=== PATIENT | male | born 1945 | race Caucasian/White ===

== ENCOUNTER 2017-04-26 11:28 | Emergency (ER) | payer MEDICARE ==
--- NOTE | 2017-04-26 12:36 | RAD ---
HISTORY: Posterior calf pain COMPARISONS: None relevant TECHNIQUE: Multiple transverse and longitudinal ultrasound images were obtained of the right lower extremity from the level of the common femoral vein inferiorly through to the infrapopliteal veins using grayscale, color Doppler, and spectral Doppler imaging with and without compression and with augmentation. Comparison images were obtained of the contralateral common femoral vein. Directed images were obtained of the area of pain. FINDINGS: VEINS: The venous system of the right lower extremity is compressible throughout its course, with normal flow on color Doppler imaging and normal response to augmentation on spectral Doppler imaging. SOFT TISSUES: Unremarkable. OTHER FINDINGS: There is no sonographic abnormality in the area of calf pain. IMPRESSION: NO RIGHT LOWER EXTREMITY DEEP VEIN THROMBOSIS. NO SONOGRAPHIC ABNORMALITY IN THE AREA OF CALF PAIN.
[2017-04-26 13:20] VITALS: BP 158/102
--- NOTE | 2017-04-26 13:34 | ED ---
Lower Extremity - HPI Summary HPI Summary: Patient is a 71-year-old male with a chief complaint of right calf pain which was sudden in nature upon standing. He states the calf feels as though it is pulsating. He is ambulating, but with pain. He is able to plantar flex and dorsiflex, but again with pain. Pain is a 8 out of 10, constant and throbbing. Symptoms are aggravated with standing, alleviated with rest. He has not taken anything for the pain. There is no erythema or warmth or size difference comparatively to the calfs. Denies any recent travel. He does not take blood thinners. - History of Current Complaint Chief Complaint: EDExtremityLower Stated Complaint: RT LEG PAIN Time Seen by Provider: 04/26/17 11:46 Hx Obtained From: Patient Onset of Pain: Immediate Onset/Duration: Hours Severity Initially: Moderate Severity Currently: Moderate Pain Intensity: 1 Pain Scale Used: 0-10 Numeric Timing: Constant Location: Is Discrete @ - Right calf pain Character Of Pain: Aching, Throbbing Associated Signs And Symptoms: Negative: Swelling, Redness, Bruising Alleviating Factor(s): Rest Able to Bear Weight: No - Risk Factors Gout Risk Factors: Negative DVT Risk Factors: Negative Septic Arthritis Risk Factor: Extremes of Age PMH/Surg Hx/FS Hx/Imm Hx Previously Healthy: Yes - Immunization History Hx Pertussis Vaccination: No Immunizations Up to Date: Unable to Obtain/Confirm Infectious Disease History: No Infectious Disease History: Denies: Traveled Outside the in Last 30 Days - Social History Occupation: Unemployed Lives: With Family Alcohol Use: None Hx Substance Use: No Substance Use Type: Reports: None Hx Tobacco Use: No Smoking Status (MU): Never Smoked Tobacco Review of Systems Constitutional: Negative Negative: Fever, Chills, Fatigue, Skin Diaphoresis Eyes: Negative Cardiovascular: Negative Gastrointestinal: Negative Genitourinary: Negative Positive: no symptoms reported, see HPI Positive: Arthralgia, Myalgia Skin: Negative All Other Systems Reviewed And Are Negative: Yes Physical Exam Triage Information Reviewed: Yes Vital Signs On Initial Exam: Initial Vitals Temp Pulse Resp BP Pulse Ox 98.1 F 77 18 155/105 98 04/26/17 11:30 04/26/17 11:30 04/26/17 11:30 04/26/17 11:30 03/09/18 11:30 Vital Signs Reviewed: Yes Appearance: Positive: Well-Appearing, Well-Nourished Skin: Positive: Warm, Skin Color Reflects Adequate Perfusion, Other - No erythema or warmth to the calf Head/Face: Positive: Normal Head/Face Inspection Eyes: Positive: EOMI, GLENNY, Conjunctiva Clear Neck: Positive: Supple, No Lymphadenopathy Respiratory/Lung Sounds: Positive: Clear to Auscultation, Breath Sounds Present Cardiovascular: Positive: RRR, Pulses are Symmetrical in both Upper and Lower Extremities Musculoskeletal: Positive: Strength/ROM Intact, Pain @ - Right calf pain. Negative: Laurie Sign Left, Laurie Sign Right, Edema Left, Edema Right Neurological: Positive: Normal, Sensory/Motor Intact, Alert, Oriented to Person Place, Time, Speech Normal Psychiatric: Positive: Normal AVPU Assessment: Alert Diagnostics - Vital Signs Vital Signs Temp Pulse Resp BP Pulse Ox 04/26/17 13:18 98.3 F 76 18 158/102 97 04/26/17 11:30 98.1 F 77 18 155/105 98 - Laboratory Lab Statement: Any lab studies that have been ordered have been reviewed, and results considered in the medical decision making process. Lower Extremity Course/Dx - Course Course Of Treatment: During the course of treatment, the patient is evaluated for right calf pain. Ultrasound order which shows no evidence of DVT. Likely muscle strain. I have advised moist heat to the area and have given Flexeril for his symptoms of muscle spasms. He will follow-up with orthopedics if symptoms become worse. He will take ibuprofen 6 her milligrams 3 times daily for inflammation. - Diagnoses Differential Diagnosis/HQI/PQRI: Positive: DVT, Sprain, Strain Provider Diagnoses: Muscle strain Discharge - Discharge Plan Condition: Stable Disposition: HOME Prescriptions: Cyclobenzaprine TAB* [Flexeril TAB*] 10 mg PO BID PRN #16 tab MDD 2 PRN Reason: Spasms Patient Education Materials: Muscle Strain (ED) Referrals: No Primary Care Phys,NOPCP [Primary Care Provider] - Maria Esther Baker MD [Medical Doctor] - Additional Instructions: Moist heat to the area Flexeril twice daily as needed for muscle spasms Please follow-up with orthopedic physician if symptoms continue Ibuprofen 600 mg 3 times daily Rest the area
== END 2017-04-26 13:18 | disposition home or self-care (01) ==
LOC: ED 11:28
DX: S86.811A Strain of other muscle(s) and tendon(s) at lower leg level, right leg, initial encounter (principal)
CPT/HCPCS: 99281

== ENCOUNTER 2019-01-24 10:03 | Emergency (ER) | payer MEDICARE ==
--- OUTSIDE RECORDS SUMMARY | 2019-01-24 10:23 | XMS REPORT | Summary of Care ---
:1945 Author Organization [facility] Address [address] [facility] [place] [address] Care Team Providers Name Role Phone Madeleine Thomas MD Primary Care Provider Reason for Visit Reason Comments Dysuria Encounter Details Date Type Department Care Team Description 01/21/2019 Office Visit [facility] Madeleine Lr, Dysuria (Primary Dx); [facility] [employer] Urethritis [place] [id number] [address] [facility] [phone] [place] [address] Allergies No Known Allergiesdocumented as of this encounter (statuses as of 01/21/2019) Medications Medication Sig Dispensed Refills Start Date End Date Status metroNIDAZOLE 1 Appl by Apply 1 Tube 11 12/04/2018 Active (METROGEL) 1 % Apply externally route externally TWICE DAILY. GelIndications: Rosacea amoxicillin (AMOXIL, Take 1 Tab by 14 Tab 0 01/21/2019 01/28/2019 Active POLYMOX, TRIMOX) 875 mouth TWICE DAILY MG Oral Tab for 7 days. documented as of this encounter (statuses as of 01/21/2019) Active Problems Problem Noted Date Dupuytren's contracture 10/04/2014 Skin cancer, basal cell 05/21/2013 Overview: Excision left shoulder 2010 Pure hypercholesterolemia 08/15/2012 Overview: Lifestyle changes instituted 2008. Lumbosacral spondylosis without myelopathy 02/14/2007 documented as of this encounter (statuses as of 01/21/2019) Resolved Problems Problem Noted Date Resolved Date Keratosis 11/24/2013 08/22/2017 Basal cell carcinoma of shoulder 12/25/2010 08/15/2012 Unspecified constipation 11/15/2010 09/10/2011 Osteoarthrosis, unspecified whether generalized or 02/14/2007 08/15/2012 localized, pelvic region and thigh Disorders of sacrum 02/14/2007 08/15/2012 documented as of this encounter (statuses as of 01/21/2019) Immunizations Name Administration Dates Next Due Depo Medrol (80mg) 02/22/2015 Influenza Vaccine 65 Yrs + 12/04/2018 Pneumococcal Conjugate(13 Valent) 12/04/2018 TDAP Vaccine 08/27/2012 Td 01/25/2005 Xiaflex (0.9mg) 01/17/2015 documented as of this encounter Social History Tobacco Use Types Packs/Day Years Used Date Former Smoker Smokeless Tobacco: Never Used Alcohol Use Drinks/Week oz/Week Comments Yes rare Sex Assigned at Date Recorded Not on file Job Start Date Occupation Industry Not on file Not on file Not on file Travel History Travel Start Travel End No recent travel history available. documented as of this encounter Last Filed Vital Signs Vital Sign Reading Time Taken Comments Blood Pressure 130/78 01/21/2019 8:17 AM EST Pulse 69 01/21/2019 8:17 AM EST Temperature 36.4 01/21/2019 8:17 AM EST C (97.6 F) Respiratory Rate 16 01/21/2019 8:17 AM EST Oxygen Saturation 98% 01/21/2019 8:17 AM EST Inhaled Oxygen Concentration - - Weight - - Height - - Body Mass Index - - documented in this encounter Patient Instructions Patient InstructionsMadeleine Cervantes FNP-C - 01/21/2019 8:10 AM ESTAmoxil 875mg twice daily x 7 days. Avoid coffee/caffeines. Clear fluids Report to ER if having increase or ongoing pain, bladder distention/unable to pee, etc Labs/cultures ordered/taken today: Urine culture: Final result will be available in 2-3 days. If we need to change your antibiotic, we will notify you, or if you are having ongoing issues in 2-3 days, you may call the walk in office at [phone] for final results documented in this encounter Progress Notes Madeleine Cervantes FNP-C - 01/21/2019 8:10 AM EST PATIENT: Dax Anglin : 1945 DATE OF SERVICE: 01/21/2019 Chief Complaint Patient presents with Dysuria HPI: Dax Anglin is 73-y.o. and comes to walk in care office with complaint of: Urinary issues. Symptoms started 5 days Symptoms include: Pain at tip of penis/urethra. Denies abdominal pain, pressure, back pain Had elevated PSA in past, but has been going down. Follows with Dr. Thomas and appt with her in February Denies: Abdominal pain, n/v/d, fever, back pain Denies any concerns for STI's: States "haven't had sex since 1973". Denies any penile discharge, ulcers Denies any urinary retention Was seen at another walk in office yesterday. Culture is pending Past Medical History: Diagnosis Date Arthritis Basal cell carcinoma of shoulder 12/25/2010 Wrist fracture Past Surgical History: Procedure Laterality Date COLONOSCOPY 2004 next 2014 Outpatient Medications Marked as Taking for the 01/21/19 encounter (Office Visit ) with Madeleine Cervantes FNP-C Medication Sig Dispense Refill amoxicillin (AMOXIL, POLYMOX, TRIMOX) 875 MG Oral Tab Take 1 Tab by mouth TWICE DAILY for 7 days. 14 Tab 0 No Known Allergies ROS: Reviewed in HPI and pertinent positives noted above, remaining are negative if not otherwise stated. PHYSICAL EXAM: OBJECTIVE: BP 130/78 Pulse 69 Temp 97.6 F (36.4 C) (Tympanic) Resp 16 SpO2 98% GENERAL: Alert, In no acute distress HEAD: Atraumatic CHEST/LUNGS: Resps easy and unlabored. Clear to auscultation bilaterally. No wheezes, rales, rhonchi. HEART: Regular rate and rhythm. No abnormal heart sounds appreciated ABDOMEN: Soft, without pain BS x 4 normoactive. No guarding, rebound tenderness, or rigidity. No CVA tenderness PENILE: deferred INTEGUMENTARY: Skin pink, warm Results for orders placed or performed in visit on 01/21/19 URINE DIP CLINITEK (AMB POCT) Result Value Ref Range URINE GLUCOSE (POCT) Negative Negative mg/dl URINE BILIRUBIN (POCT) Negative Negative Urine Ketones (POCT) Negative Negative URINE SPECIFIC GRAVITY (POCT) 1.020 1.005 - 1.030 URINE BLOOD (POCT) Negative Negative URINE PH (POCT) 7.0 5.0 - 8.0 URINE PROTEIN (POCT) Negative Negative mg/dl URINE UROBILINOGEN (POCT) 0.2 0.2 - 1.0 mg/dl URINE NITRITES (POCT) Negative Negative URINE LEUKOCYTES (POCT) Negative Negative Cells/uL ASSESSMENT: ICD-9-CM ICD-10-CM 1. Dysuria 788.1 R30.0 URINE DIP CLINITEK (AMB POCT) URINE CULTURE (C&S) 2. Urethritis 597.80 N34.2 PLAN: Advised pt that we can try some amoxil and wait for culture. Advised to avoid caffeine for now Will follow up with his pcp Patient Instructions Amoxil 875mg twice daily x 7 days. Avoid coffee/caffeines. Clear fluids Report to ER if having increase or ongoing pain, bladder distention/unable to pee, etc Labs/cultures ordered/taken today: Urine culture: Final result will be available in 2-3 days. If we need to change your antibiotic, we will notify you, or if you are having ongoing issues in 2-3 days, you may call the walk in office at [phone] for final results FOLWER Ngo 01/21/2019 08:51 documented in this encounter Plan of Treatment Date Type Specialty Care Team Description 02/25/2019 Office Visit Internal Medicine Madeleine Thomas MD [address] [place] [id number] [phone] Name Type Priority Associated Diagnoses Order Schedule URINE CULTURE (C&S) Lab Routine Dysuria 1 Occurrences starting 01/21/2019 until 07/20/2019 Health Maintenance Due Date Last Done Comments ZOSTER IMMUNIZATION SERIES 05/23/2019 Postponed from (1 of 2) 07/13/1993 (Vaccine not available) Colonoscopy 11/25/2019 11/24/2009, 11/24/2009, 02/14/2005 DEPRESSION SCREENING 12/05/2019 12/04/2018 FALL RISK ASSESSMENT 12/05/2019 12/04/2018, 12/04/2018 LIPID DISORDER SCREENING 12/05/2019 12/04/2018, 11/29/2017, 10/08/2017, Additional history exists PNEUMOCOCCAL 65+YRS (2 of 2 12/05/2019 12/04/2018 - PPSV23) AAA SCREENING/SURVEILLANCE Completed 08/09/2017 INFLUENZA VACCINE Completed 12/04/2018 HPV IMMUNIZATION SERIES Aged Out No longer eligible based on patient's age to complete this topic MENINGOCOCCAL VACCINE IMM Aged Out No longer eligible based on patient's age to complete this topic documented as of this encounter Procedures Procedure Name Priority Date/Time Associated Diagnosis Comments URINE DIP CLINITEK Routine 01/21/2019 8:20 AM Dysuria Results for this (AMB POCT) EST procedure are in the results section. documented in this encounter Results URINE DIP CLINITEK (AMB POCT) (01/21/2019 8:20 AM EST) URINE GLUCOSE (POCT) Negative Negative mg/dl [facility] POCT URINE BILIRUBIN Negative Negative [facility] (POCT) POCT Urine Ketones (POCT) Negative Negative [facility] POCT URINE SPECIFIC 1.020 1.005 - 1.030 [facility] GRAVITY (POCT) POCT URINE BLOOD (POCT) Negative Negative [facility] POCT URINE PH (POCT) 7.0 5.0 - 8.0 [facility] POCT URINE PROTEIN (POCT) Negative Negative mg/dl [facility] POCT URINE UROBILINOGEN 0.2 0.2 - 1.0 mg/dl [facility] (POCT) POCT URINE NITRITES (POCT) Negative Negative [facility] POCT URINE LEUKOCYTES Negative Negative Cells/uL [facility] (POCT) POCT Specimen Urine - Urine specimen (specimen) Performing Organization Address City/State/Zipcode Phone Number [facility] [address] [place] [id number] documented in this encounter Visit Diagnoses Diagnosis Dysuria - Primary Urethritis Urethritis, unspecified documented in this encounter Insurance Payer Benefit Plan / Subscriber ID Effective Dates Phone Address Type Group A[employer]NA MEDICARE AETNA MEDICARE xxxxxxxx 2017-Present [employer] ADVANTAGE Guarantor Name Account Type Relation to Date of Phone Billing Patient Address Dax Anglin Personal/Family 1945 [address] (Home) [address] [phone] [place], [place] (Work) [id number] documented as of this encounter
--- OUTSIDE RECORDS SUMMARY | 2019-01-24 10:23 | XMS REPORT | Summary of Care ---
:1945 Author Organization [facility] Address [address] [place] [address] Care Team Providers Name Role Phone Madeleine Thomas MD Primary Care Provider Reason for Visit Reason Comments Biannual Check Up Encounter Details Date Type Department Care Team Description 12/04/2018 Office Visit Cristy Internal Madeleine Thomas, Need for vaccination (Primary Dx); Medicine MD Ibrahim; [facility] [address] [facility] Follow up; [facility] Elevated fasting glucose; [place] [address] [place] [address] Mixed hyperlipidemia; [phone] Essential hypertension; Screening PSA (prostate specific antigen) Allergies No Known Allergiesdocumented as of this encounter (statuses as of 12/11/2018) Medications Medication Sig Dispensed Refills Start Date End Date Status metroNIDAZOLE 1 Appl by Apply 1 Tube 11 12/04/2018 Active (METROGEL) 1 % externally Apply externally route TWICE GelIndications: DAILY. Rosacea doxycycline Take 100 mg by 20 Tab 0 06/10/2018 12/05/19 Discontinued (VIBRAMYCIN) 100 mouth TWICE 19 MG Oral Tab DAILY. metroNIDAZOLE 1 Appl by Apply 1 Tube 11 12/04/2018 12/05/19 Discontinued (METROGEL) 1 % externally 19 (Reorder) Apply externally route TWICE GelIndications: DAILY. Rosacea documented as of this encounter (statuses as of 12/11/2018) Active Problems Problem Noted Date Dupuytren's contracture 10/04/2014 Skin cancer, basal cell 05/21/2013 Overview: Excision left shoulder 2010 Pure hypercholesterolemia 08/15/2012 Overview: Lifestyle changes instituted 2008. Lumbosacral spondylosis without myelopathy 02/14/2007 documented as of this encounter (statuses as of 12/11/2018) Resolved Problems Problem Noted Date Resolved Date Keratosis 11/24/2013 08/22/2017 Basal cell carcinoma of shoulder 12/25/2010 08/15/2012 Unspecified constipation 11/15/2010 09/10/2011 Osteoarthrosis, unspecified whether generalized or 02/14/2007 08/15/2012 localized, pelvic region and thigh Disorders of sacrum 02/14/2007 08/15/2012 documented as of this encounter (statuses as of 12/11/2018) Immunizations Name Administration Dates Next Due Depo [...] Sign Reading Time Taken Comments Blood Pressure 124/82 12/04/2018 9:14 AM EDT Pulse 65 12/04/2018 9:14 AM EDT Temperature 36.7 12/04/2018 9:14 AM EDT C (98.1 F) Respiratory Rate - - Oxygen Saturation 98% 12/04/2018 9:14 AM EDT Inhaled Oxygen Concentration - - Weight 78.9 kg (174 lb) 12/04/2018 9:14 AM EDT Height - - Body Mass Index 25.7 05/16/2018 9:15 AM EDT documented in this encounter Progress Notes Madeleine Thomas MD - 12/04/2018 9:20 AM EDT PATIENT: Dax Anglin : 1945 DATE OF SERVICE: 12/04/2018 CHIEF COMPLAINT: Chief Complaint Patient presents with Biannual Check Up Subjective HISTORY OF PRESENT ILLNESS: Dax Anlgin is a 73-y.o. male. HPI Follow up, last seen by me on 05/22/18 and has history of oa/djd, bph with elevated psa, hx of skin cancer, hyperlipidemia, hypertension, mildly elevated fasting glucose. He has been seeing urology specialists at [facility] for the elevated psa. Last labs were done 05/16/18 and is due for a full blood panel today. LDL is consistently elevated in the 140's, but is not interested in starting any medication for it. All in all, he is doing well. Past Medical History: Diagnosis Date Arthritis Basal cell carcinoma of shoulder 12/25/2010 Wrist fracture Family History Problem Relation Age of Onset Heart Disease Mother Diabetes Brother Cancer Brother Heart Disease Sister Anesth Problems No family history Arthritis No family history Clotting Disorder No family history Hypertension No family history Kidney Disease No family history Thyroid Disease No family history Current Outpatient Medications Medication Sig metroNIDAZOLE (METROGEL) 1 % Apply externally Gel 1 Appl by Apply externally route TWICE DAILY. No current facility-administered medications for this visit. No Known Allergies Social History Socioeconomic History Marital status: Spouse name: Not on file Number of children: Not on file Years of education: Not on file Highest education level: Not on file Occupational History Not on file Social Needs Financial resource strain: Not on file Food insecurity: Worry: Not on file Inability: Not on file Transportation needs: Medical: Not on file Non-medical: Not on file Tobacco Use Smoking status: Former Smoker Smokeless tobacco: Never Used Substance and Sexual Activity Alcohol use: Yes Comment: rare Drug use: No Sexual activity: Not on file Lifestyle Physical activity: Days per week: Not on file Minutes per session: Not on file Stress: Not on file Relationships Social connections: Talks on phone: Not on file Gets together: Not on file Attends spiritism service: Not on file Active member of club or organization: Not on file Attends meetings of clubs or organizations: Not on file Relationship status: Not on file Intimate partner violence: Fear of current or ex partner: Not on file Emotionally abused: Not on file Physically abused: Not on file Forced sexual activity: Not on file Other Topics Concern Back Care Not Asked Bike Helmet Not Asked Blood Transfusions Not Asked Caffeine Concern Not Asked Exercise Yes Hobby Hazards Not Asked International Travel Not Asked Service Not Asked Occupational Exposure Not Asked Seat Belt Not Asked Self-Exams Not Asked Sleep Concern Not Asked Special Diet No Stress Concern Not Asked Weight Concern Not Asked Social History Narrative lives alone in [facility] area Over the last 2 weeks, have you been feeling down, depressed, anxious, or hopeless?: 0 Over the past 2 weeks, have you felt little interest or pleasure in doing things ?: 0 REVIEW OF SYSTEMS: Review of Systems Constitutional: Negative. HENT: Negative. Respiratory: Negative. Cardiovascular: Negative. Gastrointestinal: Negative. Genitourinary: Negative. Musculoskeletal: Negative. Skin: Negative. Neurological: Negative. Psychiatric/Behavioral: Negative. Objective PHYSICAL EXAM: VITALS: BP 124/82 | Pulse 65 | Temp 98.1 F (36.7 C) | Wt 174 lb ( 78.9 kg) | SpO2 98% |BMI 25.70 kg/m Body mass index is 25.7 kg/m. Physical Exam Skin: General: Skin is warm and dry. Neurological: Mental Status: He is alert. Psychiatric: Mood and Affect: Mood normal. ASSESSMENT / IMPRESSION: ICD-9-CM ICD-10-CM 1. Need for vaccination V05.[address] FLU VACCINE 65 YRS + 2. Rosacea 695.3 L71.9 metroNIDAZOLE (METROGEL) 1 % Apply externally Gel DISCONTINUED: metroNIDAZOLE (METROGEL) 1 % Apply externally Gel 3. Follow up V67.9 Z09 4. Elevated fasting glucose 790.21 R73.01 GLYCOHEMOGLOBIN A1C GLYCOHEMOGLOBIN A1C 5. Mixed hyperlipidemia 272.2 E78.2 LIPID PROFILE COMPREHENSIVE METABOLIC PANEL COMPREHENSIVE METABOLIC PANEL LIPID PROFILE 6. Essential hypertension 401.9 I10 THYROID STIMULATING HORMONE FREE T4 FREE T4 THYROID STIMULATING HORMONE 7. Screening PSA (prostate specific antigen) V76.44 Z12.5 PSA, TOTAL (INITIAL SCREEN) PSA, TOTAL (INITIAL SCREEN) Plan Get above fasting labs done now. No change in medications. Goal LDL is under 100. Author: Madeleine Thomas MD 12/11/2018 06:36 documented in this encounter Plan of Treatment Health Maintenance Due Date Last Done Comments ZOSTER IMMUNIZATION SERIES 05/23/2019 Postponed from (1 of 2) 07/13/1993 (Vaccine not available) COLONOSCOPY SCREENING 11/25/2019 11/24/2009, 11/24/2009, 02/14/2005 DEPRESSION SCREENING 12/05/2019 [...] Procedure Name Priority Date/Time Associated Diagnosis Comments PSA, TOTAL (INITIAL Routine 12/04/2018 9:46 Screening PSA Results for this SCREEN) AM EDT (prostate specific procedure are in antigen) the results section. THYROID STIMULATING Routine 12/04/2018 9:46 Essential Results for this HORMONE AM EDT hypertension procedure are in the results section. LIPID PROFILE Routine 12/04/2018 9:46 Mixed hyperlipidemia Results for this AM EDT procedure are in the results section. GLYCOHEMOGLOBIN A1C Routine 12/04/2018 9:46 Elevated fasting Results for this AM EDT glucose procedure are in the results section. FREE T4 Routine 12/04/2018 9:46 Essential Results for this AM EDT hypertension procedure are in the results section. COMPREHENSIVE METABOLIC Routine 12/04/2018 9:46 Mixed hyperlipidemia Results for this PANEL AM EDT procedure are in the results section. documented in this encounter Results PSA, TOTAL (INITIAL SCREEN) (12/04/2018 9:46 AM EDT) PSA SCREEN 4.96 (H) <4.00 ng/mL [facility] Comment: [facility] PSA is performed on the [employer] Mobile[employer] Vitros systems. Values obtained with different assay methods or kits cannot be used interchangeably. PSA levels in serum and plasma, regardless of level, should not be interpreted as absolute evidence of the presence o r absence of malignant disease. Serial test results obtained with the OCD VITROS PSA test, in patients who are clinically free of disease, should be used in conjunction with all relevant information ambika ived from diagnostic tests, physical examination, and full medical history in accordance with appropriate patient management procedures. Specimen Blood - Blood specimen (specimen) Performing Organization Address [facility] Phone Number [facility] [address] [address] GLYCOHEMOGLOBIN A1C (12/04/2018 9:46 AM EDT) Glycohemoglobin A1C 5.5 <=5.6 % [facility] Comment: [facility] Normal*: <=5.6% Pre Diabetes* Risk: 5.7-6.4% Diabetes* Risk: >=6.5% Glycemic Goals for Adult Diabetes*: <7.0% *(Adult Ranges)[place] Diabetes Association, Standards of Medical Care in Diabetes, 2018 Specimen Blood - Blood specimen (specimen) Performing Organization Address [facility] Phone Number [facility] [address] [place] [address] FREE T4 (12/04/2018 9:46 AM EDT) Free T4 1.1 0.8 - 2.2 NG/DL [facility] Specimen Blood - Blood specimen (specimen) Performing Organization Address [facility] Phone Number [facility] [address] [place] [address] [phone] THYROID STIMULATING HORMONE (12/04/2018 9:46 AM EDT) TSH 2.41 0.47 - 4.68 uIu/ml [facility] Specimen Blood - Blood specimen (specimen) Performing Organization Address [facility] Phone Number [facility] [address] [address] [phone] COMPREHENSIVE METABOLIC PANEL (12/04/2018 9:46 AM EDT) Sodium 140 134 - 145 mmol/L [facility] Potassium 4.2 3.5 - 5.1 mmol/L [facility] Chloride 104 98 - 107 mmol/L [facility] CO2 22 22 - 30 mmol/L [facility] Calcium 9.9 8.3 - 10.1 mg/dl [facility] Albumin 4.7 3.5 - 5.0 g/dl [facility] BUN 14 9 - 20 mg/dl [facility] Creatinine 0.9 0.8 - 1.5 mg/dl [facility] Glucose 95 70 - 99 mg/dl [facility] Total Protein 8.2 6.3 - 8.2 g/dl [facility] Total Bilirubin 0.9 0.0 - 1.1 MG/DL [facility] AST 43 17 - 59 U/L [facility] ALT 20 (L) 21 - 72 U/L [facility] Alkaline 66 40 - 150 U/L [facility] eGFR >60 See Interpretation [facility] Comment: Below ml/min/1.73ml GROUP Estimated GFR Interpretation: LABORATORY Above 60ml/min/1.73m2 = Normal Renal Function 30-59 ml/min/1.73m2 = Stage 3 Chronic Kidney Disease 15-29 ml/min/1.73m2 = Stage 4 Chronic Kidney Disease Less than 15 ml/min/1.73m2 = Stage 5 Chronic Kidney Disease The GFR value is calculated using the Modification of Diet in Renal Disease ( MDRD) Study Equation which can be found at: https://www.kidney.org/content/usou-belfy-usguxjam BUN/Creatinine 16 6 - 22 RATIO [facility] Anion Gap 14 (H) 3 - 11 mmol/L [facility] A/G Ratio 1.3 0.8 - 2.0 ratio [facility] Specimen Blood - Blood specimen (specimen) Performing Organization Address City/State/Zipcode Phone Number [facility] [address] [facility] [place] [address] LIPID PROFILE (12/04/2018 9:46 AM EDT) Cholesterol 208 (H) <200 mg/dl [facility] HDL Cholesterol 45 >40 mg/dl [facility] Triglycerides 108 <150 mg/dl [facility] LDL Cholesterol 141 (H) <100 MG/DL [facility] Cholesterol / HDL Ratio 4.6 RATIO [facility] LDL / HDL Ratio 3.1 [facility] Non-HDL Cholesterol 163 (H) 0 - 130 MG/DL [facility] Specimen Blood - Blood specimen (specimen) Performing Organization Address City/State/Zipcode Phone Number [facility] [address] [address] documented in this encounter Visit Diagnoses Diagnosis Need for vaccination - Primary Need for prophylactic vaccination and inoculation against unspecified single disease Rosacea Follow up Elevated fasting glucose Impaired fasting glucose Mixed hyperlipidemia Essential hypertension Unspecified essential hypertension Screening PSA (prostate specific antigen) Special screening for malignant neoplasm of prostate documented in this encounter Insurance Payer Benefit Plan / Subscriber ID Effective Dates Phone Address Type Group AETNA MEDICARE AETNA MEDICARE xxxxxxxx 2017-Present [employer] AD[employer] ADVANTAGE Guarantor Name Account Type Relation to Date of Phone Billing Patient Address Kelli Anglinn [place]iz[place] Personal/Family 1945 [address] [phone] [place], [place] (Work) [id number] documented as of this encounter"
--- NOTE | 2019-01-24 11:24 | ED ---
GI/ HPI - HPI Summary HPI Summary: This patient is a 73 year old male presenting to [facility] with a chief complaint of urinary symptoms since one week ago. He reports pain with urination, frequent urination, and burning with urination that has worsened over the last two days. He has been seen at two different clinics prior to today and had negative urine screens. He comes in today for urology consult. He states he opted to start amoxicillin despite negative tests. He reports years of intermittent back pain near the right flank that gets worse when he lays down. He states the back pain most recently started around the same time as the urinary symptoms. He rates his pain 3/10 in severity. Hx elevated PSA followed w urology at [facility] w neg workup 8 months ago. - History of Current Complaint Chief Complaint: EDUrogenitalProblems Time Seen by Provider: 01/24/19 11:17 Stated Complaint: BURNING SENSATION WHEN PEEING/DIFFICULTY PEEING Hx Obtained From: Patient Onset/Duration: Started Days Ago Pain Intensity: 3 Location of Pain: Flank - Allergy/Home Medications Allergies/Adverse Reactions: Allergies Allergy/AdvReac Type Severity Reaction Status Date / Time No Known Allergies Allergy Verified 01/24/19 10:11 Home Medications: Home Medications Amoxicillin 875 mg OPHTHALMIC BID 01/24/19 [History Confirmed 01/24/19] PMH/Surg Hx/FS Hx/Imm Hx Endocrine/Hematology History: Denies: Hx Diabetes Cardiovascular History: Denies: Hx Coronary Artery Disease Infectious Disease History: No Infectious Disease History: Denies: Traveled Outside the [place] in Last 30 Days - Family History Known Family History: Negative: Cardiac Disease - Social History Alcohol Use: None Hx Substance Use: No Substance Use Type: Reports: None Hx Tobacco Use: No Smoking Status (MU): Never Smoked Tobacco Review of Systems Negative: Fever Positive: burning, dysuria, frequency, flank pain Positive: Other - Back pain All Other Systems Reviewed And Are Negative: Yes Physical Exam - Summary Physical Exam Summary: General: Well appearing, no distress HEENT: PERRL Cardiovascular: Skin is well perfused Pulmonary: No respiratory distress, no tachypnea Abdomen: Non-distended, non-tender except for mild right flank tenderness. Skin: Warm, pink, dry MSK: No edema Psych: Normal affect Neuro: A&Ox3 Triage Information Reviewed: Yes Vital Signs On Initial Exam: Initial Vitals Temp Pulse Resp BP Pulse Ox 97.3 F 73 16 168/95 98 01/24/19 10:07 01/24/19 10:07 01/24/19 10:07 01/24/19 10:07 01/24/19 10:07 Vital Signs Reviewed: Yes Procedures - Sedation Patient Received Moderate/Deep Sedation with Procedure: No Diagnostics - Vital Signs Vital Signs Temp Pulse Resp BP Pulse Ox 01/24/19 10:07 97.3 F 73 16 168/95 98 - Laboratory Lab Statement: Any lab studies that have been ordered have been reviewed, and results considered in the medical decision making process. GIGU Course/Dx - Course Course Of Treatment: 73 y/o male w hx elevated PSA p/w dysuria. - recent neg UA x2, requesting urology f/u. D/w patient could be 2/2 STD (denies infections, will send GC/Cl, renal stone (trace hematuria), infection. Already on abx. UC sent. Requests to pursue further w/u (imaging) w urology. - Diagnoses Provider Diagnoses: Hematuria, Dysuria Discharge ED - Sign-Out/Discharge Documenting (check all that apply): Patient Departure - Discharge - Discharge Plan Condition: Stable Disposition: HOME Patient Education Materials: Hematuria (ED), Dysuria (ED) Referrals: [facility] [Provider Group] Additional Instructions: You were seen in the emergency department for pain with urination. Your urinalysis showed trace blood. Please follow up with urology for further workup. If any studies were not completed at the time of discharge you will be called with the relevant results. Please follow up with your primary care doctor in next 2-3 days and return to emergency department for worsening pain, fevers, severe back pain or concerning symptoms. It was a pleasure taking care of you today. - Billing Disposition and Condition Condition: STABLE Disposition: Home - Attestation Statements Document Initiated by Scribe: Yes Documenting Scribe: Peterson Chapa Provider For Whom Elian is Documenting (Include Credential): Tai Foote MD Scribe Attestation: Peterson Green scribed for Tai Foote MD on 01/24/19 at 1141. Scribe Documentation Reviewed: Yes Provider Attestation: The documentation as recorded by the scribe, Peterson Beshara accurately reflects the service I personally performed and the decisions made by me, Tai Foote MD Status of Scribe Document: Viewed
[2019-01-24 11:29] LABS: Urine Appearance Clear; Urine Bilirubin Negative (Negative); Urine Blood 1+ (Negative); Urine Color Straw; Urine Glucose Negative (Negative); Urine Ketones Negative (Negative); Urine Nitrite Negative (Negative); Urine Protein 1+(30 mg/dL) (Negative); Urine Specific Gravity 1.006 (1.010-1.030); Urine Urobilinogen Negative (Negative)
[2019-01-24 11:38] LABS: Urine Bacteria Absent (Absent); Urine Red Blood Cell Trace(0-2/hpf) (Absent); Urine White Blood Cell Trace(0-5/hpf) (Absent)
[2019-01-24 12:12] VITALS: BP 150/84
[2019-01-26 14:15] LABS: Chlamydia trachomatis NAA Negative (Negative); Neisseria gonorrhoeae (GC) NAA Negative (Negative)
== END 2019-01-24 12:05 | disposition home or self-care (01) ==
LOC: ED 10:03
DX: R30.0 Dysuria (principal); R31.9 Hematuria, unspecified
CPT/HCPCS: 81003; 81015; 87086; 87491; 87591; 99282